=== PATIENT | male | born 1990 | race Caucasian/White ===

== ENCOUNTER → 2018-11-03 | Outpatient (CLI) | payer OTHER ==
[~2018-11-03] MED LIST: CHLO25 PO; HYDACE5325 PO; IBUP800 PO
[2018-11-03 16:03] LABS: BASOPHILS ABSOLUTE AUTO 0.05 K/mm3 (0.00-0.23); BASOPHILS PERCENT AUTO 1 % (0-2); EOSINOPHILS ABSOLUTE AUTO 0.06 K/mm3 (0.00-0.68); EOSINOPHILS PERCENT AUTO 1 % (0-6); Hematocrit 47.5 % (37.0-53.0); Hemoglobin 16.8 g/dL (13.5-17.5); IMMATURE GRAN ABSOLUTE AUTO 0.01 K/mm3 (0.00-0.10); IMMATURE GRAN PERCENT AUTO 0 % (0-1); LYMPHOCYTES ABSOLUTE AUTO 1.46 K/mm3 (0.84-5.20); LYMPHOCYTES PERCENT AUTO 21 % (21-46); MONOCYTES ABSOLUTE AUTO 0.69 K/mm3 (0.16-1.47); MONOCYTES PERCENT AUTO 10 % (4-13); Mean Corpuscular HGB 32.6 pg (26.0-34.0); Mean Corpuscular HGB Conc 35.4 g/dL (31.5-36.5); Mean Corpuscular Volume 92 fL (80-100); Mean Platelet Volume 11.4 fL (9.1-12.4); NEUTROPHILS PERCENT AUTO 68 % (41-73); Platelet Count 166 K/mm3 (150-400); RDW Coefficient Variation 11.9 % (11.7-14.2); RDW Standard Deviation 40.4 fL (35.1-46.3); Red Blood Cell Count 5.16 M/mm3 (4.30-5.90); White Blood Cell Count 6.97 K/mm3 (4.00-11.30)
[2018-11-03 16:45] LABS: Alanine Aminotransfer (ALT/SGP 134 U/L (12-78); Albumin, Blood 4.1 g/dL (3.4-5.0); Alk Phos 95 U/L (40-126); Anion Gap 12 mmol/L (6-16); Aspartate Aminotrans (AST/SGOT 96 U/L (12-37); Bilirubin, Total 1.4 mg/dL (0.1-1.0); Blood Urea Nitrogen 8 mg/dL (8-24); Bun/Creatinine Ratio 9.5 (12.0-20.0); CO2, Blood 24 mmol/L (21-32); Calcium, Blood 9.1 mg/dL (8.5-10.1); Chloride, Blood 100 mmol/L (98-108); Creatinine, Blood 0.84 mg/dL (0.60-1.20); Globulin, Blood 4.1 g/dL (2.2-4.0); Glomerular Filtration Rate >60 (60-); Glucose, Blood 93 mg/dL (70-99); Sodium, Blood 136 mmol/L (136-145); Thyroid Stimulating Hormone 1.595 uIU/mL (0.360-4.800); Total Protein, Blood 8.2 g/dL (6.4-8.2)
== END | disposition home or self-care (01) ==
LOC: LAB SHORT 15:54 → LAB EV 15:54
PROVIDERS: Physician Assistant Medical
DX: R53.83 Other fatigue (principal)
CPT/HCPCS: 80053; 84443; 85025

== ENCOUNTER 2018-11-05 19:44 | Emergency (ER) | payer OTHER ==
[~2018-11-05] VITALS: Ht 172.7 cm; Wt 86.2 kg
[~2018-11-05 19:44] MED LIST changes: -CHLO25 PO
[2018-11-05 20:19] LABS: BASOPHILS ABSOLUTE AUTO 0.06 K/mm3 (0.00-0.23); BASOPHILS PERCENT AUTO 1 % (0-2); EOSINOPHILS ABSOLUTE AUTO 0.14 K/mm3 (0.00-0.68); EOSINOPHILS PERCENT AUTO 2 % (0-6); Hematocrit 45.1 % (37.0-53.0); Hemoglobin 15.9 g/dL (13.5-17.5); IMMATURE GRAN ABSOLUTE AUTO 0.02 K/mm3 (0.00-0.10); IMMATURE GRAN PERCENT AUTO 0 % (0-1); LYMPHOCYTES ABSOLUTE AUTO 2.38 K/mm3 (0.84-5.20); LYMPHOCYTES PERCENT AUTO 28 % (21-46); MONOCYTES ABSOLUTE AUTO 0.95 K/mm3 (0.16-1.47); MONOCYTES PERCENT AUTO 11 % (4-13); Mean Corpuscular HGB Conc 35.3 g/dL (31.5-36.5); Mean Corpuscular Volume 94 fL (80-100); Mean Platelet Volume 11.3 fL (9.1-12.4); NEUTROPHILS ABSOLUTE AUTO 5.08 K/mm3 (1.96-9.15); NEUTROPHILS PERCENT AUTO 59 % (41-73); Platelet Count 158 K/mm3 (150-400); RDW Coefficient Variation 11.7 % (11.7-14.2); RDW Standard Deviation 40.3 fL (35.1-46.3); Red Blood Cell Count 4.82 M/mm3 (4.30-5.90); White Blood Cell Count 8.63 K/mm3 (4.00-11.30)
[2018-11-05 20:39] LABS: Alanine Aminotransfer (ALT/SGP 115 U/L (12-78); Albumin, Blood 3.9 g/dL (3.4-5.0); Alk Phos 98 U/L (50-136); Anion Gap 11 mmol/L (6-16); Aspartate Aminotrans (AST/SGOT 65 U/L (12-37); Bilirubin, Total 0.8 mg/dL (0.1-1.0); Blood Urea Nitrogen 6 mg/dL (8-24); Bun/Creatinine Ratio 9.7 (12.0-20.0); CO2, Blood 22 mmol/L (21-32); Calcium, Blood 8.5 mg/dL (8.5-10.1); Chloride, Blood 101 mmol/L (98-108); Creatinine, Blood 0.62 mg/dL (0.60-1.20); Ethanol (Alcohol), Blood, Med 23 mg/dL; Globulin, Blood 3.8 g/dL (2.2-4.0); Glomerular Filtration Rate >60 (60-); Glucose, Blood 78 mg/dL (70-99); Sodium, Blood 134 mmol/L (136-145); Total Protein, Blood 7.7 g/dL (6.4-8.2)
[2018-11-05] MEDS ORDERED: CHLO25 PO (22:54)
== END 2018-11-05 23:57 | disposition home or self-care (01) ==
LOC: ER 19:44
PROVIDERS: Physician Assistant
DX: F10.239 Alcohol dependence with withdrawal, unspecified (principal); Y90.1 Blood alcohol level of 20-39 mg/100 ml; F17.210 Nicotine dependence, cigarettes, uncomplicated
CPT/HCPCS: 36415; 80053; 85025; 99283; G0480

== ENCOUNTER → 2020-11-29 | Outpatient (CLI) | payer OTHER ==
[~2020-11-29] MED LIST changes: +CHLO25 PO
[2020-12-02 16:32] LABS: CORONAVIRUS (COVID19) CSH-NRL Negative (Negative)
== END ==
LOC: LAB SHORT 13:32 → LAB 13:32
PROVIDERS: Chiropractor
DX: R05 Cough (principal); Z20.822 Contact with and (suspected) exposure to COVID-19
CPT/HCPCS: U0003

== ENCOUNTER 2022-01-31 19:52 | Emergency (ER) | payer OTHER ==
[~2022-01-31] VITALS: Ht 167.6 cm; Wt 72.6 kg
[2022-01-31 20:23] LABS: BASOPHILS ABSOLUTE AUTO 0.05 K/mm3 (0.00-0.23); BASOPHILS PERCENT AUTO 1 % (0-2); EOSINOPHILS ABSOLUTE AUTO 0.03 K/mm3 (0.00-0.68); EOSINOPHILS PERCENT AUTO 0 % (0-6); Hematocrit 45.2 % (37.0-53.0); IMMATURE GRAN ABSOLUTE AUTO 0.04 K/mm3 (0.00-0.10); IMMATURE GRAN PERCENT AUTO 1 % (0-1); LYMPHOCYTES ABSOLUTE AUTO 1.29 K/mm3 (0.84-5.20); LYMPHOCYTES PERCENT AUTO 17 % (21-46); MONOCYTES ABSOLUTE AUTO 0.94 K/mm3 (0.16-1.47); MONOCYTES PERCENT AUTO 13 % (4-13); Mean Corpuscular HGB 32.6 pg (26.0-34.0); Mean Corpuscular HGB Conc 35.4 g/dL (31.5-36.5); Mean Corpuscular Volume 92 fL (80-100); Mean Platelet Volume 11.5 fL (9.1-12.4); NEUTROPHILS PERCENT AUTO 69 % (41-73); Platelet Count 107 K/mm3 (150-400); RDW Coefficient Variation 12.1 % (11.7-14.2); RDW Standard Deviation 41.5 fL (35.1-46.3); Red Blood Cell Count 4.91 M/mm3 (4.30-5.90); White Blood Cell Count 7.45 K/mm3 (4.00-11.30)
[2022-01-31 20:36] LABS: Alanine Aminotransfer (ALT/SGP 179 U/L (12-78); Alk Phos 98 U/L (50-136); Anion Gap 16 mmol/L (6-16); Aspartate Aminotrans (AST/SGOT 131 U/L (12-37); Bilirubin, Total 1.6 mg/dL (0.1-1.0); Blood Urea Nitrogen 5 mg/dL (8-24); Bun/Creatinine Ratio 7.2 (12.0-20.0); CO2, Blood 22 mmol/L (21-32); Calcium, Blood 9.5 mg/dL (8.5-10.1); Chloride, Blood 92 mmol/L (98-108); Ethanol (Alcohol), Blood, Med <3 mg/dL; Globulin, Blood 4.2 g/dL (2.2-4.0); Glomerular Filtration Rate 124 (60-); Glucose, Blood 145 mg/dL (70-99); Magnesium, Blood 1.9 mg/dL (1.6-2.4); Sodium, Blood 130 mmol/L (136-145); Total Protein, Blood 8.2 g/dL (6.4-8.2)
[2022-01-31] MEDS ORDERED: LEVE500 PO (21:37)
== END 2022-01-31 22:07 | disposition home or self-care (01) ==
LOC: ER 19:52
PROVIDERS: Emergency Medicine
DX: R56.9 Unspecified convulsions (principal); F10.939 Alcohol use, unspecified with withdrawal, unspecified; I10 Essential (primary) hypertension
CPT/HCPCS: 70450; 80053; 83735; 85025; 93005; 93010; A9270; G0480

== ENCOUNTER 2025-01-05 20:11 | Inpatient (IN) | payer OTHER ==
[~2025-01-05] VITALS: Ht 172.7 cm; Wt 74.1 kg
[~2025-01-05 20:11] MED LIST changes: +LEVE500 PO
[2025-01-05] MEDS ORDERED: Ondansetron HCl 2 MG / ML 2ML Vial IV PRN (20:40)
[2025-01-05 21:02] LABS: BASOPHILS ABSOLUTE AUTO 0.06 K/mm3 (0.00-0.23); BASOPHILS PERCENT AUTO 1 % (0-2); EOSINOPHILS ABSOLUTE AUTO 0.06 K/mm3 (0.00-0.68); EOSINOPHILS PERCENT AUTO 1 % (0-6); Hematocrit 33.2 % (37.0-53.0); Hemoglobin 11.8 g/dL (13.5-17.5); IMMATURE GRAN ABSOLUTE AUTO 0.02 K/mm3 (0.00-0.10); IMMATURE GRAN PERCENT AUTO 0 % (0-1); LYMPHOCYTES ABSOLUTE AUTO 2.46 K/mm3 (0.84-5.20); LYMPHOCYTES PERCENT AUTO 36 % (21-46); MONOCYTES ABSOLUTE AUTO 0.84 K/mm3 (0.16-1.47); MONOCYTES PERCENT AUTO 12 % (4-13); Mean Corpuscular HGB Conc 35.5 g/dL (31.5-36.5); Mean Corpuscular Volume 93 fL (80-100); NEUTROPHILS ABSOLUTE AUTO 3.42 K/mm3 (1.96-9.15); NEUTROPHILS PERCENT AUTO 50 % (41-73); NRBC ABSOLUTE 0.00 K/mm3 (0.00-0.02); NRBC Auto 0.0 /100 WBC (0.0-0.2); Platelet Count 193 K/mm3 (150-400); RDW Coefficient Variation 12.3 % (11.7-14.2); RDW Standard Deviation 42.3 fL (35.1-46.3)
[2025-01-05 21:18] LABS: Prothrombin Time Results 10.3 Sec (9.7-11.5)
[2025-01-05 21:20] LABS: Alanine Aminotransfer (ALT/SGP 44.0 U/L (12-78); Albumin, Blood 3.7 g/dL (3.4-5.0); Albumin/Globulin Ratio 1.1 (0.8-1.8); Anion Gap 11.0 mmol/L (3-11); Aspartate Aminotrans (AST/SGOT 33.0 U/L (12-37); Bilirubin, Total 0.7 mg/dL (0.1-1.0); Blood Urea Nitrogen 8.0 mg/dL (8-24); CO2, Blood 26.0 mmol/L (21-32); Calcium, Blood 8.7 mg/dL (8.5-10.1); Chloride, Blood 96.0 mmol/L (98-108); Creatinine, Blood 0.64 mg/dL (0.60-1.20); Globulin, Blood 3.3 g/dL (2.2-4.0); Glucose, Blood 132.0 mg/dL (70-99); Potassium, Blood 3.6 mmol/L (3.5-5.5); Sodium, Blood 129.0 mmol/L (136-145); Total Protein, Blood 7.0 g/dL (6.4-8.2)
[2025-01-05] MEDS ORDERED: NS 1,000 ML IV SCH (22:55)
[2025-01-05] MEDS ORDERED: Pantoprazole Sodium 40 MG Injection IV ONE (22:55)
[2025-01-05] MEDS ORDERED: LORazepam 2 MG/ML 1ML Injection IV ONE (23:45)
[2025-01-06] MEDS ORDERED: FLU VACC TS2025-26(6MOS UP)/PF 45 MCG/0.5 ML SYRINGE IM SCH (00:35)
[2025-01-06] MEDS ORDERED: NS 1,000 ML IV SCH (00:35)
[2025-01-06] MEDS ORDERED: LORazepam 2 MG/ML 1ML Injection IV PRN (00:35)
[2025-01-06] MEDS ORDERED: Ondansetron HCl 2 MG / ML 2ML Vial IV PRN (00:40)
[2025-01-06] MEDS ORDERED: Octreotide Acetate 500 MCG in NS 250 ML IV SCH (00:55)
[2025-01-06 01:01] LABS: Magnesium, Blood 2.1 mg/dL (1.6-2.4); Phosphorus, Blood 4.0 mg/dL (2.5-4.9)
[2025-01-06 04:17] LABS: BASOPHILS ABSOLUTE AUTO 0.03 K/mm3 (0.00-0.23); BASOPHILS PERCENT AUTO 1 % (0-2); EOSINOPHILS ABSOLUTE AUTO 0.06 K/mm3 (0.00-0.68); EOSINOPHILS PERCENT AUTO 1 % (0-6); Hematocrit 27.8 % (37.0-53.0); Hemoglobin 9.6 g/dL (13.5-17.5); IMMATURE GRAN ABSOLUTE AUTO 0.00 K/mm3 (0.00-0.10); IMMATURE GRAN PERCENT AUTO 0 % (0-1); LYMPHOCYTES ABSOLUTE AUTO 1.63 K/mm3 (0.84-5.20); LYMPHOCYTES PERCENT AUTO 36 % (21-46); MONOCYTES ABSOLUTE AUTO 0.55 K/mm3 (0.16-1.47); MONOCYTES PERCENT AUTO 12 % (4-13); Mean Corpuscular HGB Conc 34.5 g/dL (31.5-36.5); Mean Corpuscular Volume 93 fL (80-100); NEUTROPHILS ABSOLUTE AUTO 2.32 K/mm3 (1.96-9.15); NEUTROPHILS PERCENT AUTO 51 % (41-73); NRBC ABSOLUTE 0.00 K/mm3 (0.00-0.02); NRBC Auto 0.0 /100 WBC (0.0-0.2); Platelet Count 157 K/mm3 (150-400); RDW Coefficient Variation 12.5 % (11.7-14.2); RDW Standard Deviation 43.3 fL (35.1-46.3)
[2025-01-06 04:30] VITALS: BP 114/96
[2025-01-06] MEDS ORDERED: IBUP200 PO (04:42)
[2025-01-06 05:36] LABS: Alanine Aminotransfer (ALT/SGP 40.0 U/L (12-78); Albumin, Blood 3.6 g/dL (3.4-5.0); Albumin/Globulin Ratio 1.3 (0.8-1.8); Anion Gap 10.0 mmol/L (3-11); Aspartate Aminotrans (AST/SGOT 29.0 U/L (12-37); Bilirubin, Total 1.4 mg/dL (0.1-1.0); Blood Urea Nitrogen 10.0 mg/dL (8-24); CO2, Blood 23.0 mmol/L (21-32); Calcium, Blood 8.4 mg/dL (8.5-10.1); Chloride, Blood 103.0 mmol/L (98-108); Creatinine, Blood 0.63 mg/dL (0.60-1.20); Globulin, Blood 2.7 g/dL (2.2-4.0); Glucose, Blood 169.0 mg/dL (70-99); Potassium, Blood 4.7 mmol/L (3.5-5.5); Sodium, Blood 131.0 mmol/L (136-145); Total Protein, Blood 6.3 g/dL (6.4-8.2)
--- NOTE | 2025-01-06 06:01 | NUR ---
Admitted from ED with octreotide and protonix gtts infusions. Oriented to room. Able to walk SBA to restroom. NPO, surgery consult called
[2025-01-06 07:44] VITALS: BP 125/90
[2025-01-06 09:05] LABS: Hematocrit 28.1 % (37.0-53.0); Hemoglobin 9.8 g/dL (13.5-17.5)
[2025-01-06 11:19] VITALS: BP 130/94
[2025-01-06 15:33] LABS: Hematocrit 26.6 % (37.0-53.0); Hemoglobin 9.2 g/dL (13.5-17.5)
[2025-01-06 15:59] VITALS: BP 129/94
[2025-01-06] MEDS ORDERED: Peg/Electrolytes 4,000 ML BTL PO ONE (17:00)
--- NOTE | 2025-01-06 17:22 | NUR ---
PT SUMMARY; PT HAD MELENA THIS MORNING A COUPLE TIMES, MADE AWRE. VITALS HAS BEEN STABLE. PT TRANSITIONED TO MEDICAL NO TELE. CLEAR LIQUID DIET ORDERED. PT FOR UPPER AND LOWER SCOPE IN THE MORNING. SURPREP TONIGHT AT 1800. PT WAS EDUCATED ABOUT PREP INSTRUCTIONS PT VERBALIZED UNDERSTANDING. PROTONIX AND OCREOTIDE GTT INFUSING. PT HAS BEEN CALLING IF NEED HELP AMBULATING INDEPENDNENTLY IN THE ROOM. CIWA AT 5-7. PT WAS ANXIOUS WENT THE DR ROUNDED ATIVAN 1MG IV WAS GIVEN AND WAS EFFECTIVE. NO OTHER ISSUES ENCOUNTERED ABLE TO MAKE NEEDS KNOWN WILL REPORT TO ONCOMING SHIFT
[2025-01-06 20:26] VITALS: BP 147/100; BP 147/11
[2025-01-06 21:02] LABS: Hematocrit 27.1 % (37.0-53.0); Hemoglobin 9.3 g/dL (13.5-17.5)
[2025-01-06 23:33] VITALS: BP 125/88
[2025-01-07] VITALS (24 sets, daily range): BP systolic 100–137; BP diastolic 72–104
--- NOTE | 2025-01-07 04:35 | NUR ---
SHIFT SUMMARY Uneventful shift. Pt completed second dose bowel prep at 0300. BMs now minimal and clear. VSS. CIWA <5 all shift, no ativan given. Plan for upper and lower scope today.
--- NOTE | 2025-01-07 08:48 | NUR ---
01/07/25 0848 Amanda Castellon CONFIRMED AND REVIEWED H&P, MEDCICATIONS, ALLERGIES, MEDICAL HISTORY, RESPIRATORY HISTORY, VITAL SIGNS, 3-LEAD EKG, CONSENTS, AND PHYSICIAN ORDERS. PATIENT CONFIRMS NPO STATUS AND AGREES WITH SCHEDULED PROCEDURE. MONITOR INTACT WITH CONTINUOUS PULSE OXIMETRY, CAPNOGRAPHY, 3-LEAD EKG, INTERMITTENT BP. SUPPLEMENTAL O2 TO BE TITRATED THROUGHOUT PROCEDURE TO MAINTAIN O2 SATURATION ABOVE 90%. PATIENT DETERMINED TO BE ASA APPROPRIATE FOR PROPOFOL SEDATION PRIOR TO START OF PROCEDURE BY DR. ACHARYA
[2025-01-07 12:52] LABS: BASOPHILS ABSOLUTE AUTO 0.05 K/mm3 (0.00-0.23); BASOPHILS PERCENT AUTO 1 % (0-2); EOSINOPHILS ABSOLUTE AUTO 0.09 K/mm3 (0.00-0.68); EOSINOPHILS PERCENT AUTO 2 % (0-6); Hematocrit 25.7 % (37.0-53.0); Hemoglobin 8.9 g/dL (13.5-17.5); IMMATURE GRAN ABSOLUTE AUTO 0.01 K/mm3 (0.00-0.10); IMMATURE GRAN PERCENT AUTO 0 % (0-1); LYMPHOCYTES ABSOLUTE AUTO 1.44 K/mm3 (0.84-5.20); LYMPHOCYTES PERCENT AUTO 26 % (21-46); MONOCYTES ABSOLUTE AUTO 0.49 K/mm3 (0.16-1.47); MONOCYTES PERCENT AUTO 9 % (4-13); Mean Corpuscular HGB Conc 34.6 g/dL (31.5-36.5); Mean Corpuscular Volume 96 fL (80-100); NEUTROPHILS ABSOLUTE AUTO 3.38 K/mm3 (1.96-9.15); NEUTROPHILS PERCENT AUTO 62 % (41-73); NRBC ABSOLUTE 0.00 K/mm3 (0.00-0.02); NRBC Auto 0.0 /100 WBC (0.0-0.2); Platelet Count 196 K/mm3 (150-400); RDW Coefficient Variation 12.2 % (11.7-14.2); RDW Standard Deviation 42.1 fL (35.1-46.3)
[2025-01-07] MEDS ORDERED: B-1100 M1 PO (14:07)
[2025-01-07] MEDS ORDERED: FERSU300 PO (14:07)
[2025-01-07] MEDS ORDERED: FOLI1 PO (14:07)
--- NOTE | 2025-01-07 15:06 | NUR ---
PT HAD UPPER AND LOWER GI SCOPE TODAY WITH NO INTERVENTIONS. SURGEON CAME IN AND EXPLAIN RESULTS WITH THE PT AND CLEARED PT FOR DISCHARGE. VITALS HAS BEEN STABLE. PT DISCHARGED TO HOME WITH DISCHARGE ORDERS. PT REGULAR DIET RESUMED NO ISSUES ENCOUNTERED FOR THE SHIFT PT HAS BEEN AMBULATING WITH NO ISSUES. NEW MEDCIATIONS SENT TO [facility]. PT ACCOMPANIED AMBUALTORY FOR DISCHARGE ALL BELONGINGS SENT WITH THE PT
== END 2025-01-07 13:00 | disposition home or self-care (01) | DRG 378 ==
LOC: ER 20:11 → PCU 20:12
PROVIDERS: Emergency Medicine; Internal Medicine; Surgery; ADMIT Internal Medicine
PROC: 0DJD8ZZ Inspection of Lower Intestinal Tract, Via Natural or Artificial Opening Endoscopic (ICD-10-PCS; principal; 2025-01-07 09:30)
PROC: 0DJ08ZZ Inspection of Upper Intestinal Tract, Via Natural or Artificial Opening Endoscopic (ICD-10-PCS; 2025-01-07 09:30)
DX: K57.31 Diverticulosis of large intestine without perforation or abscess with bleeding (principal); D62 Acute posthemorrhagic anemia; E87.1 Hypo-osmolality and hyponatremia; F10.20 Alcohol dependence, uncomplicated; I10 Essential (primary) hypertension; F17.210 Nicotine dependence, cigarettes, uncomplicated; E87.8 Other disorders of electrolyte and fluid balance, not elsewhere classified; K62.1 Rectal polyp
CPT/HCPCS: 36415; 80053; 83735; 83880; 84100; 85014; 85018; 85025; 85610; 85730; 86850; 86900; 86901; 93005; 93010; 96361; 96374; 96375; 96376; 99285-25; A9270; G0378; J2060; J2354; J2470; J2704; J7030; J7050; J7120